=== PATIENT | male | born 1945 | race Caucasian/White ===

== ENCOUNTER 2021-07-30 10:06 | Outpatient (CLI) | payer MEDICARE, SELFPAY ==
--- NOTE | ~2021-07-30 | CT_ITS ---
EXAMINATION: CT abdomen pelvis wo con DATE: 07/30/2021 10:33 INDICATION: Left ureteral stone TECHNIQUE: Computed tomography (CT) of the abdomen and pelvis was performed without intravenous contr ast. The dose-length product (DLP) was 222.46 mGy-cm. Automated exposure control and iterative recons truction technique were employed. COMPARISON: 01/23/2017 FINDINGS: There are calcified pleural plaques which can be seen in the setting of prior asbestos expo sure. There is atelectasis or scarring in the right middle lobe. The heart size is normal. Calcified coronary artery atherosclerosis is noted. Stones are present in the nondistended gallbladder. Punctat e calcifications in an otherwise normal spleen likely represent healed granulomatous disease. The enrique er and adrenal glands are normal. Punctate calcifications of the pancreas are consistent with chronic pancreatitis. There is a 2 mm nonobstructing stone of the right kidney upper pole. No stones are pre sent in the left kidney, ureters, or the bladder. There is no hydronephrosis or hydroureter. Calcifie d atherosclerosis is noted. The abdominal aorta is upper limits of normal in size measuring 3 cm. The re is a small fat-containing umbilical hernia. There is moderate lumbar spondylosis. IMPRESSION: 1. Nonobstructing right nephrolithiasis. Reviewed, dictated and finalized at location A.
--- NOTE | ~2021-07-30 | XR_ITS ---
EXAMINATION: XR abdomen/kub 1V INDICATION: Left ureteral stone TECHNIQUE: Supine views of the abdomen were obtained on 2 radiographs. COMPARISON: CT from today and radiographs dated 11/18/2006 FINDINGS: No urolithiasis is identified. The right kidney upper pole described on today's CT is not d efinitely seen. The bowel gas pattern is normal. There is a moderate volume of colonic stool. 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 There is calcified atherosclerosis. The visualized lung bases are clear. Calcified pleural plaques are noted. IMPRESSION: 1. No urolithiasis identified. Reviewed, dictated and finalized at location A.
== END 2021-07-30 10:07 | disposition home or self-care (01) ==
LOC: ANHIMG 10:09
PROVIDERS: Visit Provider Urology
DX: N20.1 Calculus of ureter (principal); R31.9 Hematuria, unspecified; R10.9 Unspecified abdominal pain; I25.10 Atherosclerotic heart disease of native coronary artery without angina pectoris; K42.9 Umbilical hernia without obstruction or gangrene; M47.816 Spondylosis without myelopathy or radiculopathy, lumbar region
CPT/HCPCS: 74018; 74176

== ENCOUNTER → 2023-12-23 10:33 | Outpatient (REF) | payer MEDICARE, SELFPAY | LOC: ANHLAB 10:33 | PROVIDERS: Visit Provider Plastic Surgery | DX: D09.8 Carcinoma in situ of other specified sites (principal); D48.5 Neoplasm of uncertain behavior of skin | CPT/HCPCS: 88305 ==

== ENCOUNTER 2024-02-18 12:36 | Outpatient (CLI) | payer MEDICARE, SELFPAY ==
--- NOTE | ~2024-02-18 | CT_ITS ---
Non-contrast CT scan of the Abdomen and Pelvis Clinical indication: Left ureteral stone Technique: 2.5 mm axial scans were obtained through the abdomen and pelvis without intravenous or or al contrast. Dose reduction technique was used on this scan by utilizing automated exposure control a nd iterative reconstruction technique. The dose-length product (DLP) was 418.40 mGy-cm. COMPARISON: 07/30/2021 Findings: Images through the lung bases reveal chronic rounded atelectasis or scarring right middle lobe, unchanged probable additional right lower lobe scarring present. Calcified pleural plaques pres ent along the diaphragm. Possible 2 mm distal right ureteral stone versus phlebolith adjacent to the ureter (axial image 22). No hydronephrosis. No renal stones or left ureteral stones seen. The liver, spleen, pancreas, and adrenals appear normal. Small calcified gallstones are present. Ther e is infrarenal abdominal aortic aneurysm measuring 3.3 cm in diameter. There is no evidence of bowel obstruction. Small fat-containing umbilical hernia present. Images through the pelvis were performed. There is no evidence of ascites or lymphadenopathy. Urinary bladder unremarkable. No pelvic mass evident. Prostate gland enlarged. Small fat-containing right in guinal hernia present. There is suspected ankylosis of the bilateral SI joints. Impression: Possible 2 mm distal right ureteral stone versus phlebolith. No other stones seen. No hydronephrosis. 3.3 cm infrarenal abdominal aortic aneurysm. 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 Correlate for ankylosing spondylitis. Cholelithiasis. Small fat-containing right inguinal hernia. Reviewed, dictated and finalized at [facility]. Impression: Possible 2 mm distal right ureteral stone versus phlebolith. No other stones se en. No hydronephrosis. 3.3 cm infrarenal abdominal aortic aneurysm. 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 Correlate for ankylosing spondy litis. Cholelithiasis. Small fat-containing right inguinal hernia.
--- NOTE | ~2024-02-18 | XR_ITS ---
Supine and upright views of the abdomen Clinical history: Left ureteral stone COMPARISON: 07/30/2021 Findings: Bowel gas pattern is nonspecific. No evidence for obstruction or free air. No abnormal mass lesion or calcification is seen. Osseous structures are intact. Impression: No significant abnormality is seen. Reviewed, dictated and finalized at [facility]. Impression: No significant abnormality is seen.
== END 2024-02-18 12:37 ==
PROVIDERS: PCP Family Medicine; Visit Provider Physician Assistant
DX: N20.1 Calculus of ureter (principal); I71.43 Infrarenal abdominal aortic aneurysm, without rupture; K80.20 Calculus of gallbladder without cholecystitis without obstruction; K40.90 Unilateral inguinal hernia, without obstruction or gangrene, not specified as recurrent
CPT/HCPCS: 74018; 74176

== ENCOUNTER 2024-04-05 09:47 | Outpatient (CLI) | payer MEDICARE, SELFPAY ==
--- NOTE | ~2024-04-05 | XR_ITS ---
EXAMINATION: XR abdomen/kub 1V DATE: 04/05/2024 10:06 INDICATION: Left ureteral stone. TECHNIQUE: A supine view of the abdomen on 2 radiographs was obtained. COMPARISON: CT abdomen and pelvis 02/18/2024 FINDINGS: There are no dilated loops of bowel. IMPRESSION: 1. No visible urolithiasis. Reviewed, dictated and finalized at location A. IMPRESSION: 1. No visible urolithiasis.
== END 2024-04-05 09:48 | disposition home or self-care (01) ==
PROVIDERS: PCP Family Medicine; Visit Provider Physician Assistant
DX: N20.1 Calculus of ureter (principal)
CPT/HCPCS: 74018